=== PATIENT | male | born 1980 ===

== ENCOUNTER 2017-11-07 10:16 | Emergency (ER) | payer OTHER ==
[~2017-11-07] VITALS: Ht 167.6 cm; Wt 95.7 kg
[2017-11-07 10:54] LABS: BASOPHILS % (AUTO) 1 % (0-10); EOSINOPHILS # (AUTO) 0.1 10^3/uL (0.0-0.3); EOSINOPHILS % (AUTO) 2 % (0-10); HEMATOCRIT 36 % (40-54); HEMOGLOBIN 13.2 G/DL (13.3-17.7); LYMPHOCYTES # (AUTO) 1.6 X 10^3 (1.0-4.0); LYMPHOCYTES % (AUTO) 27 % (12-44); MEAN CORPUSCULAR HEMOGLOBIN 30 PG (25-34); MEAN CORPUSCULAR HGB CONC 37 G/DL (32-36); MEAN CORPUSCULAR VOLUME 83 FL (80-99); MONOCYTES # (AUTO) 0.4 X 10^3 (0.0-1.0); MONOCYTES % (AUTO) 7 % (0-12); NEUTROPHILS # (AUTO) 3.7 X 10^3 (1.8-7.8); NEUTROPHILS % (AUTO) 63 % (42-75); PLATELET COUNT 214 10^3/uL (130-400); RED BLOOD COUNT 4.37 10^6/uL (4.35-5.85); RED CELL DISTRIBUTION WIDTH 12.4 % (10.0-14.5); WHITE BLOOD COUNT 5.8 10^3/uL (4.3-11.0)
--- NOTE | 2017-11-07 10:59 | ED EENT ---
History of Present Illness General Chief Complaint: Nasal Problems Stated Complaint: NOSE BLEEDS Nursing Triage Note: AMBULATED TO ROOM 05. NOSE BLEEDS SINCE MONDAY. DENIES INJURY. Source: patient Exam Limitations: no limitations History of Present Illness Date Seen by Provider: Nov 07, 2017 Time Seen by Provider: 10:27 Initial Comments Here with report of intermittent nosebleeds for the last 4 days. Onset last Monday when he bent over. States bled multiple times that day. Repeated on Monday and again today. Denies any recent trauma. Denies other illnesses. Denies any other medical problems. Timing/Duration: abrupt, intermittent, last week Severity: moderate Location: nose Prearrival Treatment: squeezing nostrils Modifying Factors: Improves With Rest Associated Symptoms: No cough, No facial pain/swelling, No fever, No nasal congestion/drainage, No sinus infection Allergies and Home Medications Allergies Coded Allergies: No Known Drug Allergies (Unverified , 11/07/17) Home Medications No Active Prescriptions or Reported Meds Patient Home Medication List Home Medication List Reviewed: Yes Review of Systems Constitutional: see HPI; No chills, No fever Eyes: No Symptoms Reported Ears: No Symptoms Reported Nose: see HPI, epistaxis; denies pain Respiratory: no symptoms reported Cardiovascular: no symptoms reported Past Oaiacco-Hryjfn-Wulahx Hx Past Med/Social Hx: Reviewed Nursing Past Med/Soc Hx Patient Social History Alcohol Use: Occasionally Uses Recreational Drug Use: No Smoking Status: Never a Smoker Recent Foreign Travel: No Contact w/Someone Who Travel: No Recent Infectious Disease Expo: No Recent Hopitalizations: No Past Medical History Surgeries: No Respiratory: No Cardiac: No Neurological: No Genitourinary: No Gastrointestinal: No Musculoskeletal: No Endocrine: No HEENT: No Cancer: No Psychosocial: No Integumentary: No Blood Disorders: No Family Medical History Reviewed Nursing Family Hx Physical Exam Vital Signs Vital Signs - First Documented 11/07/17 10:20 Temp 98.0 Pulse 72 Resp 16 B/P (MAP) 142/99 (113) Pulse Ox 98 O2 Delivery Room Air Height, Weight, BMI Height: 5'6.00" Weight: 211lbs. oz. [id number]; BMI Method:Stated General Appearance: WD/WN, no apparent distress Nose: dried blood; No sinus tenderness Mouth/Throat: normal mouth inspection, pharynx normal Neck: full range of motion, supple Cardiovascular: regular rate, rhythm, no murmur Respiratory: lungs clear, normal breath sounds Gastrointestinal: non tender, soft Neurologic/Psychiatric: alert, oriented x 3 Skin: normal color, warm/dry Progress/Results/Core Measures Results/Orders Lab Results Laboratory Tests Test 11/07/17 10:37 11/07/17 10:48 Range/Units White Blood Count 5.8 4.3-11.0 10^3/uL Red Blood Count 4.37 4.35-5.85 10^6/uL Hemoglobin 13.2 L 13.3-17.7 G/DL Hematocrit 36 L 40-54 % Mean Corpuscular Volume 83 80-99 FL Mean Corpuscular Hemoglobin 30 25-34 PG Mean Corpuscular Hemoglobin Concent 37 H 32-36 G/DL Red Cell Distribution Width 12.4 10.0-14.5 % Platelet Count 214 130-400 10^3/uL Mean Platelet Volume 10.0 7.4-10.4 FL Neutrophils (%) (Auto) 63 42-75 % Lymphocytes (%) (Auto) 27 12-44 % Monocytes (%) (Auto) 7 0-12 % Eosinophils (%) (Auto) 2 0-10 % Basophils (%) (Auto) 1 0-10 % Neutrophils # (Auto) 3.7 1.8-7.8 X 10^3 Lymphocytes # (Auto) 1.6 1.0-4.0 X 10^3 Monocytes # (Auto) 0.4 0.0-1.0 X 10^3 Eosinophils # (Auto) 0.1 0.0-0.3 10^3/uL Basophils # (Auto) 0.0 0.0-0.1 10^3/uL Prothrombin Time 13.7 12.2-14.7 SEC INR Comment 1.1 0.8-1.4 Activated Partial Thromboplast Time 29 24-35 SEC Sodium Level 138 135-145 MMOL/L Potassium Level 3.9 3.6-5.0 MMOL/L Chloride Level 105 98-107 MMOL/L Carbon Dioxide Level 25 21-32 MMOL/L Anion Gap 8 5-14 MMOL/L Blood Urea Nitrogen 14 7-18 MG/DL Creatinine 0.70 0.60-1.30 MG/DL Estimat Glomerular Filtration Rate > 60 BUN/Creatinine Ratio 20 Glucose Level 99 70-105 MG/DL Calcium Level 9.5 8.5-10.1 MG/DL Total Bilirubin 0.9 0.1-1.0 MG/DL Aspartate Amino Transf (AST/SGOT) 49 H 5-34 U/L Alanine Aminotransferase (ALT/SGPT) 94 H 0-55 U/L Alkaline Phosphatase 64 40-136 U/L Total Protein 7.4 6.4-8.2 GM/DL Albumin 4.4 3.2-4.5 GM/DL My Orders Orders - KALIE COLON MD Cbc With Automated Diff (11/07/17 10:31) Comprehensive Metabolic Panel (11/07/17 10:31) Protime With Inr (11/07/17 10:31) Partial Thromboplastin Time (11/07/17 10:31) Vital Signs/I&O 11/07/17 10:20 Temp 98.0 Pulse 72 Resp 16 B/P (MAP) 142/99 (113) Pulse Ox 98 O2 Delivery Room Air Blood Pressure Mean: 113 Progress Progress Note : Progress Note Seen and evaluated. Due to multiple episodes of nosebleed we will check basic labs. Monitor patient. 1234: No return of nosebleeds. We will treat this as outpatient. Patient instructed to follow-up in the clinic for continued evaluation related to blood pressure. Discharged home with return precautions. Patient verbalize understanding instructions and agreement with plan. Departure Impression Primary Impression: Epistaxis Disposition: 01 HOME, SELF-CARE Condition: Improved Departure-Patient Inst. Decision time for Depature: 12:39 Referrals: NO,LOCAL PHYSICIAN (PCP/Family) Primary Care Physician Patient Instructions: High Blood Pressure (DC), Nosebleeds (DC) Add. Discharge Instructions: All discharge instructions reviewed with patient and/or family. Voiced understanding. You may use Afrin nasal spray or the generic, 12 hour relief, 2 sprays to each nostril twice daily for 3 days only and then stop. Do not use more than 3 days. You may also use [id number] Claritin or the generic loratadine or similar items daily for allergies. Her blood pressure was slightly elevated today and this needs to be evaluated further. I recommend that he follow up with your doctor or the clinic to have that rechecked and treated if needed. Return for worse pain, fever, vomiting, weakness, breathing problems or other concerns as needed. Scripts No Active Prescriptions or Reported Meds KALIE COLON MD Nov 07, 2017 10:59
[2017-11-07 11:19] LABS: ALANINE AMINOTRANSFERASE 94 U/L (0-55); ALBUMIN 4.4 GM/DL (3.2-4.5); ALKALINE PHOSPHATASE 64 U/L (40-136); BILIRUBIN,TOTAL 0.9 MG/DL (0.1-1.0); BUN/CREATININE RATIO 20; CALCIUM 9.5 MG/DL (8.5-10.1); CARBON DIOXIDE 25 MMOL/L (21-32); CHLORIDE 105 MMOL/L (98-107); GFR ESTIMATED > 60; GLUCOSE 99 MG/DL (70-105); POTASSIUM 3.9 MMOL/L (3.6-5.0); SODIUM 138 MMOL/L (135-145); TOTAL PROTEIN 7.4 GM/DL (6.4-8.2)
[2017-11-07 11:50] LABS: INR 1.1 (0.8-1.4); PROTHROMBIN TIME PATIENT 13.7 SEC (12.2-14.7)
[2017-11-07 12:46] VITALS: BP 133/107
== END 2017-11-07 12:46 | disposition home or self-care (01) ==
LOC: EDUNIT# 10:16 → ER 10:20
DX: R04.0 Epistaxis (principal)
CPT/HCPCS: 36415; 80053; 85025; 85610; 85730; 99283